=== PATIENT | female | born 1980 | race African-American/Black ===

== ENCOUNTER 2018-03-12 13:12 | Emergency (ER) | payer OTHER ==
[~2018-03-12] VITALS: Ht 172.7 cm; Wt 122.5 kg
[2018-03-12 13:33] VITALS: BP 138/84
[2018-03-12] MEDS ORDERED: ACETAMINOPHEN 500 MG TABLET PO ONE (13:45)
--- NOTE | 2018-03-12 14:08 | PHYS DOC ---
Past Medical History Past Medical History: No Pertinent History Past Surgical History: Tonsillectomy Drug Use: None Adult General Chief Complaint Chief Complaint: KNEE INJURY HPI HPI Patient is a 37 year old who presents to the emergency room with complaints of left knee pain after patient states they fell onto the left knee while trying to assist, and last night at work. Injury happened at approximately 8 PM yesterday evening. Patient reports taking 800 mg of ibuprofen today prior to arrival for relief of pain. Currently reports pain at a 9 out of 10 on the pain scale. Patient reports increased pain with weightbearing and movement of the knee. Review of Systems Review of Systems Constitutional: Denies fever or chills [] Musculoskeletal: Denies back pain, reports left knee pain Integument: Denies rash or skin lesions [] Neurologic: Denies headache, focal weakness or sensory changes [] All other systems were reviewed and found to be within normal limits, except as documented in this note. Current Medications Current Medications Current Medications Medications (Trade) Dose Ordered Sig/Jaswinder Start Time Stop Time Status Last Admin Dose Admin Acetaminophen (Tylenol) 1,000 mg 1X ONCE 03/12/18 13:45 03/12/18 13:46 DC 03/12/18 13:45 1,000 MG Allergies Allergies Allergies Coded Allergies Type Severity Reaction Last Updated Verified No Known Drug Allergies 03/12/18 No Physical Exam Physical Exam Constitutional: Well developed, well nourished, no acute distress, non-toxic appearance, obese[] HENT: Normocephalic, atraumatic, bilateral external ears normal, oropharynx moist, no oral exudates, nose normal. [] Eyes: normal Skin: Warm, dry, no erythema, no rash. [] Extremities: No cyanosis, no clubbing, no edema; L knee tender to palpation, Full ROM L knee, pt reports increased pain with ROM Neurologic: Alert and oriented X 3, normal motor function, normal sensory function, no focal deficits noted. [] Psychologic: Affect normal, judgement normal, mood normal. [] Current Patient Data Vital Signs Vital Signs Date Time Temp Pulse Resp B/P (MAP) Pulse Ox O2 Delivery O2 Flow Rate FiO2 03/12/18 13:33 98.3 65 16 138/84 (102) 98 Room Air 98.3 EKG EKG [] Radiology/Procedures Radiology/Procedures [] Course & Med Decision Making Course & Med Decision Making Pertinent Labs and Imaging studies reviewed. (See chart for details) L knee sprain/pain. X-ray negative for acute findings. Wear knee sleeve, ice, Rx for naproxen. Follow up with Dr. Matt alcala. Patient verbalized an understanding of home care, medications, follow-up, and return to ED instructions and was in agreement with the plan of care. [] Dragon Disclaimer Dragon Disclaimer This electronic medical record was generated, in whole or in part, using a voice recognition dictation system. Departure Departure Impression: Primary Impression: Left knee sprain Additional Impression: Left knee pain Disposition: HOME, SELF-CARE Condition: STABLE Patient Instructions: Knee Pain, [id number], Knee Sprain, [id number] Additional Instructions: Fill prescription(s) and use as directed. Recommend application of ice, elevation, and rest of affected extremity. Wear the compression sleeve as discussed in the ER. Follow-up with Dr. Gutierrez if symptoms persist. Return to the ER if your symptoms worsen. Scripts Naproxen (NAPROXEN) 500 Mg Tablet 500 MG PO BID for 10 Days, #20 TAB 0 Refills Prov: KARLA LOCKE [employer] 03/12/18 Problem Qualifiers Primary Impression: Left knee sprain Encounter type: initial encounter Involved ligament of knee: unspecified ligament Qualified Codes: S83.92XA - Sprain of unspecified site of left knee, initial encounter Additional Impression: Left knee pain Chronicity: acute Qualified Codes: M25.562 - Pain in left knee KARLA LOCKE [employer] Mar 12, 2018 14:08
--- NOTE | 2018-03-12 14:14 | RAD ---
EXAM: 3 views left knee DATE: 03/12/2018 1:36 PM INDICATION: PT FELL LAST NIGHT, LEFT KNEE PAIN COMPARISON: No Prior FINDINGS/ IMPRESSION: No evidence of acute fracture or dislocation. Medial compartment osteophytes. No knee joint effusion. Electronically signed by: Trav Valencia MD (03/12/2018 2:11 PM) [facility]
[2018-03-12] MEDS ORDERED: NAPR-514 PO (14:40)
== END 2018-03-12 14:51 | disposition home or self-care (01) ==
LOC: EDSEX 13:12 → ER 13:12
DX: S83.92XA Sprain of unspecified site of left knee, initial encounter (principal); W18.39XA Other fall on same level, initial encounter; Y93.89 Activity, other specified; Y92.89 Other specified places as the place of occurrence of the external cause; Y99.8 Other external cause status
CPT/HCPCS: 73562; 99284